=== PATIENT | male | born 1990 | race Two or more races ===

== ENCOUNTER 2017-12-28 10:46 | Emergency (ER) | payer BC, OTHER ==
[~2017-12-28] VITALS: Ht 170.2 cm; Wt 63.5 kg
--- NOTE | 2017-12-28 11:18 | NUR ---
Dr Russo at the bedside for MSE.
--- NOTE | 2017-12-28 11:47 | NUR ---
Pt signed consent for IV contrast, placed in the chart.
[2017-12-28] MEDS ORDERED: IV NORMAL SALINE 100 ML ONE (11:53)
[2017-12-28] MEDS ORDERED: IOHEXOL 300MG/ML 100 ML INFUS..BTL ONE (11:53)
[2017-12-28 11:58] LABS: BASOPHILS % (AUTO) 0.4 % (0.0-2.0); BILIRUBIN,TOTAL 0.6 mg/dL (0.2-1.0); CREATININE 0.9 mg/dL (0.6-1.3); EOSINOPHILS % (AUTO) 0.6 % (0.0-7.0); HEMATOCRIT 46.8 % (36.7-47.1); HEMOGLOBIN 15.8 g/dL (12.5-16.3); LYMPHOCYTES # (AUTO) 1.7 K/uL (20.0-40.0); LYMPHOCYTES % (AUTO) 25.3 % (20.5-51.5); MEAN CORPUSCULAR HGB CONC 34 g/dL (32.5-36.3); MEAN CORPUSCULAR VOLUME 85.8 fL (73.0-96.2); MONOCYTES # (AUTO) 0.7 K/uL (2.0-10.0); MONOCYTES % (AUTO) 10.6 % (0.0-11.0); NEUTROPHILS # (AUTO) 4.3 K/uL (1.8-8.9); NEUTROPHILS % (AUTO) 63.1 % (38.5-71.5); PLATELET COUNT (AUTO) 387 K/uL (152-348); POTASSIUM 4.5 mmol/L (3.5-5.1); RED BLOOD CELL COUNT(AUTO) 5.45 MIL/uL (4.06-5.63); TOTAL PROTEIN, SERUM 8.1 g/dL (6.4-8.2); WHITE BLOOD COUNT (AUTO) 6.8 K/uL (3.6-10.2)
--- NOTE | 2017-12-28 13:04 | NUR ---
IV removed. Catheter intact and site benign. Pressure and 4x4 gauze applied to site. No bleeding noted.
[2017-12-28 13:06] VITALS: BP 115/70
--- NOTE | 2017-12-28 13:15 | NUR ---
DR HASSAN MADE PATIENT AWARE OF TEST RESULTS WILL BE DC HOME.
--- NOTE | 2017-12-28 13:23 | NUR ---
Patient discharged to home in stable conditon. Written and verbal after care instructions given. Patient verbalizes understanding of instructions.
== END 2017-12-28 13:27 | disposition home or self-care (01) ==
LOC: ER 10:46
DX: R10.30 Lower abdominal pain, unspecified (principal)
CPT/HCPCS: 36415; 76870; 85025; A4663; J3490; Q9967